=== PATIENT | male | born 1950 | race Caucasian/White ===

== ENCOUNTER → 2017-12-08 | Outpatient (CLI) | payer OTHER ==
[~2017-12-08] VITALS: Ht 152.4 cm; Wt 75.3 kg
[~2017-12-08] MED LIST: AMARYL; CRESTOR10 MG PO; DIOVAN HCT 320/1 TA2 PO; JANUMET 50-501 UDTAB PO; LANTUS100 U/ML SQ; NORVASC5 MG PO; PLAVIX75 MG PO
== END | disposition home or self-care (01) ==
LOC: OFIC 805 07:11
DX: H61.23 Impacted cerumen, bilateral (principal); D14.1 Benign neoplasm of larynx; J31.0 Chronic rhinitis

== ENCOUNTER 2018-05-11 07:18 | Outpatient (CLI) | payer OTHER ==
[~2018-05-11] VITALS: Ht 152.4 cm; Wt 82.6 kg
== END 2018-05-11 07:35 | disposition home or self-care (01) ==
LOC: OFIC 805 07:18
DX: D14.1 Benign neoplasm of larynx (principal); J31.0 Chronic rhinitis; D23.21 Other benign neoplasm of skin of right ear and external auricular canal; H61.23 Impacted cerumen, bilateral

== ENCOUNTER 2018-06-01 07:14 | Outpatient (CLI) | payer OTHER ==
[~2018-06-01] VITALS: Ht 152.4 cm; Wt 81.6 kg
== END 2018-06-01 07:30 | disposition home or self-care (01) ==
LOC: OFIC 805 07:14
DX: J38.7 Other diseases of larynx (principal); J30.89 Other allergic rhinitis; D14.0 Benign neoplasm of middle ear, nasal cavity and accessory sinuses

== ENCOUNTER 2018-08-16 08:26 | Outpatient (CLI) | payer OTHER | END 2018-08-16 08:40 | disposition home or self-care (01) | LOC: RAD 501 08:26 | DX: I11.9 Hypertensive heart disease without heart failure (principal); R06.02 Shortness of breath ==

== ENCOUNTER 2018-08-23 08:13 | Outpatient (CLI) | payer OTHER | END 2018-08-23 08:17 | disposition home or self-care (01) | LOC: NUCLEAR 08:13 | DX: I67.89 Other cerebrovascular disease (principal) ==

== ENCOUNTER 2018-10-17 07:33 | Outpatient (CLI) | payer OTHER | END 2018-10-17 07:38 | disposition home or self-care (01) | LOC: SONOGRAMA 07:33 → MAMO-SONO 07:45 | DX: K76.0 Fatty (change of) liver, not elsewhere classified (principal); N28.1 Cyst of kidney, acquired; E11.21 Type 2 diabetes mellitus with diabetic nephropathy; N18.9 Chronic kidney disease, unspecified; I10 Essential (primary) hypertension ==

== ENCOUNTER 2018-12-21 07:17 | Outpatient (CLI) | payer OTHER ==
[~2018-12-21] VITALS: Ht 152.4 cm; Wt 81.6 kg
== END 2018-12-21 07:35 | disposition home or self-care (01) ==
LOC: OFIC 805 07:17
DX: D23.20 Other benign neoplasm of skin of unspecified ear and external auricular canal (principal); J31.0 Chronic rhinitis; D14.1 Benign neoplasm of larynx; H61.23 Impacted cerumen, bilateral; K80.12 Calculus of gallbladder with acute and chronic cholecystitis without obstruction

== ENCOUNTER 2020-01-23 07:45 | Outpatient (CLI) | payer OTHER | END 2020-01-23 11:52 | disposition home or self-care (01) | LOC: OFIC 805 07:45 | DX: J31.0 Chronic rhinitis (principal); D14.1 Benign neoplasm of larynx; H61.23 Impacted cerumen, bilateral; D23.22 Other benign neoplasm of skin of left ear and external auricular canal | CPT/HCPCS: 31575; 69210; 99213; G0463 ==

== ENCOUNTER 2020-05-14 07:02 | Outpatient (CLI) | payer OTHER | END 2020-05-14 07:08 | disposition home or self-care (01) | LOC: SONOGRAMA 07:02 → MAMO-SONO 08:15 | PROVIDERS: ATTEND Internal Medicine Nephrology | DX: N18.3 Chronic kidney disease, stage 3 (moderate) (principal); N28.1 Cyst of kidney, acquired ==

== ENCOUNTER 2021-03-05 08:05 | Outpatient (CLI) | payer OTHER | END 2021-03-05 08:34 | disposition home or self-care (01) | LOC: OFIC 805 08:05 | PROVIDERS: ATTEND Otolaryngology Otology & Neurotology | DX: D14.1 Benign neoplasm of larynx (principal); H61.23 Impacted cerumen, bilateral ==